=== PATIENT | female | born 1950 | race Two or more races ===

== ENCOUNTER 2022-12-22 22:01 | Emergency (ER) | payer BC ==
[~2022-12-22] VITALS: Ht 165.1 cm; Wt 120.2 kg
[2022-12-22] MEDS ORDERED: CEFTRIAXONE 1 G in IV DEXTROSE 5% 50 ML IV ONE (22:15)
[2022-12-22] MEDS ORDERED: ACETAMINOPHEN ES 500 MG TABLET PO ONE (22:15)
[2022-12-22] MEDS ORDERED: DEXAMETHASONE SOD PHOSPHATE 4 MG INJ IV ONE (22:15)
[2022-12-22] MEDS ORDERED: AZITHROMYCIN 250 MG TABLET PO ONE (22:15)
[2022-12-22] MEDS ORDERED: METF-440 PO (22:22)
[2022-12-22] MEDS ORDERED: GABA-532 PO (22:22)
[2022-12-22] MEDS ORDERED: ALBU8.5H8 IH (22:22)
[2022-12-22] MEDS ORDERED: AZIT500T2 PO (22:22)
[2022-12-22] MEDS ORDERED: SERT50TA PO (22:22)
[2022-12-22] MEDS ORDERED: [UNRECOGNIZED DRUG - CODE] PO (22:22)
[2022-12-22] MEDS ORDERED: LATA7.5D OP (22:22)
[2022-12-22] MEDS ORDERED: ATOR10TA PO (22:22)
[2022-12-22] MEDS ORDERED: AZITHROMYCIN 250 MG TABLET ONE (22:41)
[2022-12-22] MEDS ORDERED: DEXAMETHASONE SOD PHOSPHATE 4 MG INJ ONE (22:41)
[2022-12-22] MEDS ORDERED: CEFTRIAXONE /D5W 50ML IVPB **ER PYXIS IV ONE (22:41)
[2022-12-22] MEDS ORDERED: ACETAMINOPHEN ES 500 MG TABLET ONE (22:41)
[2022-12-22] MEDS ORDERED: IV NORMAL SALINE 1000 ML BAG IV ONE ×2 (22:45→23:00)
[2022-12-22 22:48] LABS: BASOPHILS # (AUTO) 0.1 K/UL (0.0-0.2); BASOPHILS % (AUTO) 1.2 % (0.0-2.0); DIFFERENTIAL COMMENT 0; EOSINOPHILS # (AUTO) 0.1 K/uL (0.0-0.7); EOSINOPHILS % (AUTO) 0.8 % (0.0-7.0); HEMATOCRIT 40.1 % (31.2-41.9); HEMOGLOBIN 13.7 g/dL (10.9-14.3); LYMPHOCYTES # (AUTO) 0.3 K/uL (0.8-4.8); LYMPHOCYTES % (AUTO) 3.7 % (20.5-51.5); MEAN CORPUSCULAR HEMOGLOBIN 31.1 uug (24.7-32.8); MEAN CORPUSCULAR HGB CONC 34 g/dL (32.3-35.6); MEAN CORPUSCULAR VOLUME 91.3 fL (75.5-95.3); MONOCYTES % (AUTO) 0.4 % (0.0-11.0); NEUTROPHILS # (AUTO) 7.2 K/uL (1.8-8.9); NEUTROPHILS % (AUTO) 93.9 % (38.5-71.5); PLATELET COUNT (AUTO) 153 K/uL (179-408); RED CELL DISTRIBUTION WIDTH 13.9 % (12.3-17.7); WHITE BLOOD COUNT (AUTO) 7.7 K/uL (3.8-11.8)
[2022-12-22 22:50] LABS: CALCIUM 8.7 mg/dL (8.5-10.1); CARBON DIOXIDE 16 mmol/L (21-32); CHLORIDE 101 mmol/L (98-107); CREATININE 2.3 mg/dL (0.6-1.3); GLUCOSE 261 mg/dL (74-106); POTASSIUM 3.5 mmol/L (3.5-5.1); SODIUM SERUM 136 mmol/L (136-145); UREA NITROGEN, BLOOD 36 mg/dL (7-18)
[2022-12-22 22:56] LABS: ABG BASE EXCESS -4.9 mmol/L; ABG HCO3 16.6 mmol/L; ABG PCO2 23.2 mmHg (35.0-45.0); ABG PH 7.473 (7.350-7.450); ABG PO2 68.4 mmHg (75.0-100.0); ABG SITE RIGHT BRACHIAL; ABG TOTAL HEMOGLOBIN 14.4 G/dL (12.0-16.0); COHb 0.7 % (0.5-1.5); MetHb 0.2 % (0.0-1.5); O2Hb 94.5 % (94.0-97.0); VENT MODE ROOM AIR
[2022-12-22 23:02] LABS: ALANINE AMINOTRANSFERASE 34 U/L (14-59); ALKALINE PHOSPHATASE 256 U/L (50-136); ASPARTATE AMINOTRANSFERASE 48 U/L (15-37); BILIRUBIN,DIRECT 1.1 mg/dL (0.0-0.2); BILIRUBIN,TOTAL 3.5 mg/dL (0.2-1.0); NT-PRO BNP 12685 pg/mL (0-125); TOTAL PROTEIN, SERUM 7.1 g/dL (6.4-8.2)
[2022-12-22 23:21] LABS: LACTIC ACID 3.8 mmol/L (0.4-2.0)
[2022-12-23 08:15] VITALS: BP 122/70; TEMP 98; O2SAT 99
== END 2022-12-23 08:16 | disposition hospice, inpatient (51) ==
LOC: ER 22:04
DX: I21.A1 Myocardial infarction type 2 (principal); J18.9 Pneumonia, unspecified organism; J45.909 Unspecified asthma, uncomplicated; E11.9 Type 2 diabetes mellitus without complications; Z88.6 Allergy status to analgesic agent; Z88.8 Allergy status to other drugs, medicaments and biological substances; Z79.2 Long term (current) use of antibiotics; Z79.899 Other long term (current) drug therapy; Z20.822 Contact with and (suspected) exposure to COVID-19
CPT/HCPCS: 36415; 36600; 71045; 82803; 83605; 84484; 85025; 85730; 87040; 93005; A4606; A4663; A9150; J0696; J1100; J7040; Q0144